=== PATIENT | female | born 1950 | race Two or more races ===

== ENCOUNTER → 2024-08-04 | Emergency (ER) | payer OTHER ==
[~2024-08-04] VITALS: Ht 157.5 cm; Wt 56.7 kg
[~2024-08-04] MED LIST: KETOROLAC TROMETHAMINE 30 MG VIAL IM ONE; KETOROLAC TROMETHAMINE 30 MG VIAL ONE; ORPHENADRINE CITRATE 30 MG/ML AMPUL IM ONE; ORPHENADRINE CITRATE 30 MG/ML AMPUL ONE; TRAMADOL HCL 50 MG TABLET PO ONE
== END | disposition home or self-care (01) ==
LOC: ER 08:01
DX: S32.009A Unspecified fracture of unspecified lumbar vertebra, initial encounter for closed fracture (principal); Z88.0 Allergy status to penicillin
CPT/HCPCS: 72100; 72128; 72131; 96372; 99284; J1885; J2360